=== PATIENT | male | born 1990 | race Caucasian/White ===

== ENCOUNTER 2021-03-27 07:08 | Emergency (ER) | payer OTHER ==
[~2021-03-27] VITALS: Ht 172.7 cm; Wt 63.5 kg
--- NOTE | ~2021-03-27 | EMS ---
[address] [address] EMS Patient Care Report Name: KAYLA US Room #: DEP YOSELIN Salgado#: [id number] Admission: 03/27/21 Attend Phys: Discharge: 03/27/21 Date of : [birth year] Report #: [id number] THIS REPORT FOR: //name// Report Transmitted: 03/29/2021 09:17 EMS Care Summary [place], [place]/[facility] Incident [id number] @ 03/27/2021 06:29 Incident Location [address] [place] [address] Patient KAYLA US Male, 30 Years 1990 Patient Address [address] [place], [place] [id number] Patient History Substance Abuse, Chief Complaint ams Disposition Transported No Lights/[place] [facility] Reason Overdose/Poisoning/Ingestion Transported To [facility] Narrative EMS ARRIVED ON SCENE AT THE ADDRESS ABOVE. EMS MADE PT CONTACT, PT WAS SITTING UPRIGHT, FACE IN A TRASH CAN ATTEMPTING TO VOMIT, GCS 14. CP STATED THAT THIS WAS THE FIRST TIME MEETING PT AND THAT HE DID NOT KNOW HIS NAME OR ANY MEDICAL INFO ON HIM. ON SCENE A DENTAL CARD WAS FOUND WITH PT NAME ON THE CARD. PT DENIES PAIN OR MEDICAL HISTORY. PT ALSO DENIED ANY DRUG OR ALCOHOL USE BUT PUPILS APPEAR TO BE SLIGHTLY DILATED. PT WAS ABLE TO AMBULATE TO [facility] WITH [address] [address] EMS Patient Care Report Name: KAYLA US Room #: [facility].#: [id number] Admission: 03/27/21 Attend Phys: Discharge: 03/27/21 Date of : [birth year] Report #: [id number] HELP OF EMS. PT WAS PLACED ON STRETCHER, SECURED WITH SEATBELTS AND PLACED IN AMBULANCE. VITAL SIGNS WERE MONITORED THROUGHOUT TRANSPORT WITH NO DECLINE IN MENTAL OR PHYSICAL STATUS. TRANSFER OF CARE WAS GIVEN TO RN AT [facility]. Initial Vitals @06:50P: 65,R: 18,BP: 161/83,Pain: 0/10,GCS: 14,Glucose: 122,CO: 7,SpO2: 96,Revised Trauma: 12, @06:56P: 61,R: 18,BP: 125/79,Pain: 0/10,GCS: 14,SpO2: 96,Revised Trauma: 12, Assessments @06:40MENTAL:Confused,SKIN:Diaphoresis,HEENT:Eyes: Right: Dilated,Eyes: Left: Dilated,Head/Face: No Abnormalities,LUNG SOUNDS:General: No Abnormalities,ABDOMEN:General: No Abnormalities,PELVIS//GI:No Abnormalities,EXTREMITIES:Left Arm: No Abnormalities,Right Arm: No Abnormalities,Left Leg: No Abnormalities,Right Leg: No Abnormalities,PULSE:NEURO:No Abnormalities, Impression Altered Mental Status Procedures @06:40ALS AssessmentResponse: UnchangedSucceeded Timeline 06:25,Call Received 06:25,Dispatch Notified 06:29,Dispatched 06:30,En Route 06:39,On Scene 06:40,At Patient 06:40,ALS Assessment,Response: UnchangedSucceeded, 06:48,Depart Scene 06:50,BP: 161/83 M,PULSE: 65,RR: 18 R,SPO2: 96 Ox,ETCO2: ,B,PAIN: 0,GCS: 14, 06:56,BP: 125/79 M,PULSE: 61,RR: 18 R,SPO2: 96 Ox,ETCO2: ,BG: ,PAIN: 0,GCS: 14, 07:03,At Destination 07:15,Call Closed Disclaimer [email or web address] Copyright 2020 [employer] This EMS Care Summary contains data elements from the applicable legal record (which may be displayed differently). It is designed to provide pertinent information for the following purposes: continuity of care, clinical quality, and state data reporting. The complete legal record is available to ED staff and administrators of the receiving hospital in [employer]'s Patient Tracker. All data is provided "as is."
[2021-03-27 07:39] LABS: ABSOLUTE NEUTROPHILS 7.7 thou/uL (1.4-8.2); BASOPHILS 0.6 % (0.0-2.0); EOSINOPHILS 0.4 % (0.0-3.0); HEMOGLOBIN 13.9 gm/dL (14.0-18.0); LYMPHOCYTES 17.4 % (24.0-44.0); MCH 31.3 pg (26.0-34.0); MCV 94.9 fL (80.0-100.0); MONOCYTES 7.3 % (1.0-8.0); PLATELET COUNT 329 thou/uL (150-400); POLYS 74.3 % (36.0-66.0); RBC 4.43 mil/uL (4.50-6.00); RDW 14.1 % (10.5-14.5); WBC 10.3 thou/uL (4.0-11.0)
[2021-03-27 08:02] LABS: ANION GAP 14 mmol/L (7-16); BUN 12 mg/dL (7-18); CALCIUM 9.3 mg/dL (8.5-10.1); CHLORIDE 108 mmol/L (98-107); CO2 29 mmol/L (21-32); CREATININE 0.9 mg/dL (0.7-1.3); GLUCOSE 124 mg/dL (74-106); POTASSIUM 4.2 mmol/L (3.5-5.1); SODIUM 151 mmol/L (136-145)
[2021-03-27 08:12] LABS: BE(vivo) -1.1 mmol/L (-2 to +3); HCO3 24.9 mmol/L (22.0-26.0); PCO2 46.1 mmHg (35.0-45.0); PO2 103.1 mmHg (80.0-100.0); sO2 97.4 % (92.0-98.0)
[2021-03-27 08:16] LABS: ALBUMIN 4.7 g/dL (3.4-5.0); MAGNESIUM 2.1 mg/dL (1.8-2.4); SALICYLATE < 2.8 mg/dL (2.8-20.0); SGOT 13 U/L (15-37); SGPT 27 U/L (16-63); TOTAL BILIRUBIN 0.3 mg/dL (0.2-1.0); TOTAL PROTEIN 8.4 g/dL (6.4-8.2)
--- NOTE | 2021-03-27 08:30 | EKG ---
[address] [place] [address] ELECTROCARDIOGRAM REPORT Name: KAYLA US Room #: REG YOSELIN Salgado#: [id number] Admission: 03/27/21 Attend Phys: Discharge: Date of : 89 Report #: [id number] [facility] ED Test Date: 2021-03-27 Test Time: 07:19:37 Pat Name: KAYLA US Department: Room: Gender: Planning Lead: verito : 1990 Requested By: Poncho Ceron Order Number: [id number] MD: Faraz Archer Measurements Intervals [place] Rate: 67 P: 77 WA: 155 QRS: 103 QRSD: 148 T: 13 QT: 463 QTc: 489 Interpretive Statements Sinus rhythm RBBB and LPFB No previous ECG available for comparison Electronically Signed On 03-27-2021 8:30:07 CDT by Faraz Archer [email or web address] <ELECTRONICALLY SIGNED> By: Faraz Archer MD, [facility] 03/27/21829 8 07 Faraz Archer MD, FACC /EPI
[2021-03-27 08:38] LABS: AMP/METHAMP POSITIVE (Negative); BARBITURATES Negative (Negative); BENZODIAZEPINES Negative (Negative); COCAINE Negative (Negative); METHADONE Negative (Negative); OPIATES Negative (Negative); PCP Negative (Negative)
[2021-03-27 08:39] LABS: URINE BILIRUBIN NEGATIVE (Negative); URINE BLOOD NEGATIVE (Negative); URINE CLARITY CLEAR; URINE COLOR YELLOW; URINE GLUCOSE-RANDOM* NEGATIVE (Negative); URINE KETONES NEGATIVE (Negative); URINE LEUKOCYTES-REFLEX NEGATIVE (Negative); URINE NITRITE-REFLEX NEGATIVE (Negative); URINE PROTEIN (DIPSTICK) NEGATIVE (Negative); URINE UROBILINOGEN 0.2 E.U./dl (0.2-1.0)
[2021-03-27 10:40] VITALS: BP 117/97
== END 2021-03-27 10:40 | disposition home or self-care (01) ==
LOC: ER 07:08
PROVIDERS: Emergency Medicine
DX: T43.621A Poisoning by amphetamines, accidental (unintentional), initial encounter (principal); Z20.822 Contact with and (suspected) exposure to COVID-19; R11.2 Nausea with vomiting, unspecified; F32.9 Major depressive disorder, single episode, unspecified; Y92.89 Other specified places as the place of occurrence of the external cause